=== PATIENT | male | born 1995 ===

== ENCOUNTER 2019-06-02 15:47 | Emergency (ER) | payer SELFPAY ==
--- NOTE | 2019-06-02 15:53 | ER Report ---
History and Physical Time Seen By MD: 15:50 HPI/ROS CHIEF COMPLAINT: Nail in finger HISTORY OF PRESENT ILLNESS: This is a 24-year-old male who presents to the emergency department for a nail in his finger. Patient was hammering a nail, slipped and went through the distal end of his left index finger. CMS is intact. Tetanus was updated 2 years ago. Patient denies pain. Bleeding is controlled. No other complaints. No chest pain or shortness breath. No fevers or chills. REVIEW OF SYSTEMS: Respiratory: No cough, no dyspnea. Cardiovascular: No chest pain, no palpitations. Gastrointestinal: No vomiting, no abdominal pain. Musculoskeletal: As above. Integumentary: As above. Allergies: Coded Allergies: No Known Drug Allergies (Unverified , 06/02/19) Home Meds Active Scripts Amoxicillin/Pot Clav 875-125 Mg Tab (AUGMENTIN 875-125 TABLET) 1 Each Tablet, 1 TAB PO Q12H for 10 Days, #20 TAB 0 Refills Prov:DEEPAK RADERP- 06/02/19 Past Medical/Surgical History The patient has no significant past medical or surgical history. Reviewed Nurses Notes: Yes Physical Exam General Appearance: The patient is alert, has no immediate need for airway protection and no current signs of toxicity. Eyes: Pupils equal and round no injection. Respiratory: Chest is non tender, lungs are clear to auscultation. Cardiac: regular rate and rhythm. Gastrointestinal: Abdomen is soft and non tender, no masses, bowel sounds normal. Musculoskeletal: Neck: Neck is supple and non tender. Extremities have full range of motion and are non tender. Skin: Nail through the distal aspect of the left index finger, through the fi ngernail, exiting the pad of the finger. Bleeding is controlled, CMS intact. DIFFERENTIAL DIAGNOSIS: After history and physical exam differential diagnosis was considered for fracture, foreign body. Medical Decision Making EKG/Imaging Imaging PATIENT NAME: Bertrand Davis : 1995 MR: [id number] V: [id number] EXAM DATE: [id number] ORDERING PHYSICIAN: DEEPAK RADER TECHNOLOGIST: Location: [facility] - [place] Patient: Bertrand Davis : 1995 Visit/Account:[id number] Date of Sevice: 06/02/2019 Left second finger, three views. HISTORY: Foreign body in left second digit. A metal nail penetrates the radial aspect of the distal portion of the second fi nger. The nail passes along the radial edge of the terminal tuft. The bones and joints are otherwise unremarkable. IMPRESSION: Metal foreign body in the edge of the second finger terminal tuft. Otherwise negative. Report Dictated By: Nolberto Lowry MD at 06/02/2019 4:28 PM Report E-Signed By: Nolberto Lowry MD at 06/02/2019 4:31 PM WSN:VEIN-EULALIA ED Course/Re-evaluation ED Course The patient was admitted to room. History and physical were obtained. Differential diagnoses were considered. An x-ray of the left finger showing no foreign body, no obvious injury to the bone. The finger was digitally blocked, patient tolerated well, the nail was removed without incident, patient tolerated well. The wound was thoroughly cleansed and irrigated both the entrance and exit wounds. The patient was given a gram of Ancef. He was also started on Augmentin. Instructed to monitor closely for signs of infection, exposed understanding and discharged home. Procedure: Regional anesthesia. A digital block was performed left index finger. The block was performed with 2% lidocaine. The patient experienced complete pain relief. The procedure was performed by myself. 06/02/2019 4:54:14 pm the nail was removed successfully, patient tolerated well, small amount of bleeding through the fingernail, the wound was thoroughly irrigated and cleansed, he was also given an injection of Rocephin. Decision to Disposition Date: Jun 02, 2019 Decision to Disposition Time: 17:11 Depart Departure Impression: Primary Impression: Foreign body of left index finger Condition: Improved Disposition: HOME OR SELF-CARE New Scripts Amoxicillin/Pot Clav 875-125 Mg Tab (AUGMENTIN 875-125 TABLET) 1 Each Tablet 1 TAB PO Q12H for 10 Days, #20 TAB 0 Refills Prov: DEEPAK RADER TRANSFER AGENT-BC 06/02/19 Patient Instructions: Acute Wound Care (ED), Puncture Wound (ED) Additional Instructions: Please monitor the wound closely for infection. Take the antibiotics as prescribed. Keep the wound clean and dry. Monitor for signs of infection; redness, swelling, heat, discharge, increasing pain or red streaking. Take Tylenol or Ibuprofen as needed for pain. Return to the ER with any concerns. You may change dressing as needed. DEEPAK RADER TRANSFER AGENT-BC Jun 02, 2019 15:53
--- NOTE | 2019-06-02 16:38 | RADIOLOGY IMAGING REPORT ---
FACILITY: [facility] - [place] PATIENT NAME: Bertrand Davis : 1995 MR: [id number] V: [id number] EXAM DATE: ORDERING PHYSICIAN: DEEPAK RADER TECHNOLOGIST: Location: [facility] - [place] Patient: Bertrand Davis : 1995 Visit/Account:[id number] Date of Sevice: 06/02/2019 Left second finger, three views. HISTORY: Foreign body in left second digit. A metal nail penetrates the radial aspect of the distal portion of the second finger. The nail passe s along the radial edge of the terminal tuft. The bones and joints are otherwise unremarkable. IMPRESSION: Metal foreign body in the edge of the second finger terminal tuft. Otherwise negative. Report Dictated By: Nolberto Lowry MD at 06/02/2019 4:28 PM Report E-Signed By: Nolberto Lowry MD at 06/02/2019 4:31 PM WSN:BIB
[2019-06-02] MEDS ORDERED: cefTRIAXone 1 GM VIAL IM ONE (16:40)
[2019-06-02] MEDS ORDERED: LIDOCAINE 1% MDV 200 MG/20 ML INJ ONE (16:40)
[2019-06-02 17:00] VITALS: BP 116/85
[2019-06-02] MEDS ORDERED: AMOX-559 PO (17:01)
== END 2019-06-02 17:24 | disposition home or self-care (01) ==
LOC: ER 15:53
DX: S61.241A Puncture wound with foreign body of left index finger without damage to nail, initial encounter (principal); W45.0XXA Nail entering through skin, initial encounter
CPT/HCPCS: 73140; 96372; 99283; J0696; J2001